=== PATIENT | male | born 1995 | race Caucasian/White ===

== ENCOUNTER 2017-10-02 00:14 | Emergency (ER) | payer OTHER ==
[~2017-10-02] VITALS: Ht 172.7 cm; Wt 66.2 kg
[~2017-10-02 00:14] MED LIST: CETI10TA10 PO
[2017-10-02 00:27] VITALS: TEMP 36.5; Ht 172.7 cm; Wt 66.2 kg
--- NOTE | 2017-10-02 00:40 | EMERGENCY ROOM VISIT NOTE ---
History Report prepared by Juan Ramon: Calvin White Under the Supervision of: Dr. Leny Haider D.O. First contact with patient: 00:14 Chief Complaint: ALCOHOL OVERDOSE Stated Complaint: ALCOHOL History of Present Illness HPI is limited due to altered mental status secondary to alcohol intoxication. The patient is a 22 year old male who presents to the Emergency Room via EMS with complaints of a recent alcohol overdose. EMS states the patient was at a friend's 23st birthday alliance party prior to arrival. EMS adds that the patient drank a fifth of vodka at the alliance party. They add that the patient's friends were unable to take care of him. EMS states the patient was unable to stand up unassisted. Source of History: EMS History Limited By: AMS Review of Systems ROS is limited due to altered mental status secondary to alcohol intoxication. Past Medical & Surgical Medical Problems: (1) Wrist laceration Family History History limited due to altered mental status secondary to alcohol intoxication. Social History Smoking Status: Never Smoker Alcohol Use: occasionally Drug Use: none Marital Status: single Housing Status: lives with roommate Occupation Status: [employer] student Current/Historical Medications No Active Prescriptions or Reported Meds Allergies Coded Allergies: NO KNOWN DRUG ALLERGIES (Verified Allergy, Unknown, none, 10/02/17) Physical Exam Vital Signs Date Time Temp Pulse Resp B/P (MAP) Pulse Ox O2 Delivery O2 Flow Rate FiO2 10/02/17 04:49 68 18 101/40 97 Room Air 10/02/17 03:41 67 18 97/48 100 Room Air 10/02/17 03:03 41 10/02/17 02:20 82 18 105/49 99 Room Air 10/02/17 01:16 71 18 90/49 96 Room Air 10/02/17 00:27 36.5 69 14 114/68 90 Room Air 10/02/17 00:20 64 Physical Exam HEENT: Head - normocephalic and atraumatic Pupils are 6mm, equal, round, and sluggishly reactive to light. Extraocular eye muscles are intact, and sclera are anicteric. Nose - moist nasal mucosa without discharge. Mouth - moist buccal mucosa. Oropharynx is nonerythematous and there is no tonsillar exudate or edema noted. Neck: Supple; no JVD, nuchal rigidity, cervical lymphadenopathy, or auscultated bruits. Heart: Regular rate and rhythm. There is a normal S1 and S2 with no murmurs, clicks, or gallops appreciated. Lungs: Clear to auscultation bilaterally with no wheezes, rales, or rhonchi. Abdomen: Soft, completely nontender, nondistended, with good bowel sounds. There are no palpable pulsatile masses or hepatosplenomegaly. There is no guarding, rigidity, or rebound noted. Extremities: No evidence of cyanosis, clubbing, or edema. There are easily palpable peripheral pulses. Skin: warm and dry with good turgor and no rashes. Medical Decision & Procedures Laboratory Results 10/02/17 00:24 Test 10/02/17 00:24 Anion Gap 9.0 mmol/L (3-11) Est Creatinine Clear Calc Drug Dose 137.9 ml/min Estimated GFR () 149.0 Estimated GFR (Non- 128.6 BUN/Creatinine Ratio 18.7 (10-20) Calcium Level 8.0 mg/dl (8.5-10.1) Ethyl Alcohol mg/dL 295.0 mg/dl (0-3) Laboratory results per my review. ED Course 0036: The patient was evaluated in room B4B. A complete history and physical examination were performed. Nursing notes and previous electronic medical records were reviewed. Labs were drawn as above. The patient was placed in the prone position to avoid aspiration. He was observing the regional marketing director and pulse oximeter. 0038: Patient was actively vomiting. 0122: Patient is asleep. He is hemodynamically stable. 0359: Patient is awake. He does not have much recollection of what happened. Patient's vitals are stable. He went back to sleep. 0603: Nurse notes that the patient fell while going to the restroom. She did not notice any injuries. She was able to lower him down. Medical Decision The patient is a 22 year old male who presents to the ED with a recent overdose. Differential diagnosis includes alcohol overdose, drug intoxication, hypoglycemia, and head injury. Lab results show alcohol = 295, potassium is low at 3.0, normal renal function, and glucose = 122. This is a 22-year-old male patient who presents to the emergency department after consuming too much alcohol. The patient was vomiting throughout his stay here in the emergency department. His vital signs remain stable. His potassium was slightly low. This will be replaced. The patient is going to sober up and then you be discharged home. Medication Reconcilliation Current Medication List: was personally reviewed by me Blood Pressure Screening Patient's blood pressure: Normal blood pressure Blood pressure disposition: Did not require urgent referral Impression Primary Impression: Alcohol overdose Additional Impression: Hypokalemia Scribe Attestation The scribe's documentation has been prepared under my direction and personally reviewed by me in its entirety. I confirm that the note above accurately reflects all work, treatment, procedures, and medical decision making performed by me. Departure Information Dispostion Home / Self-Care Prescriptions No Active Prescriptions or Reported Meds Referrals [facility] ([facility]) Forms HOME CARE DOCUMENTATION FORM, IMPORTANT VISIT INFORMATION Patient Instructions ED Overdose Alcohol, [facility]: [employer] Students and Alcohol Related Visits, My [facility] Additional Instructions Rest. Take plenty of clear liquids Avoid such excessive alcohol use in the future. Take tylenol or motrin for headache take foods high in potassium Problem Qualifiers Primary Impression: Alcohol overdose Encounter type: initial encounter Injury intent: accidental or unintentional Qualified Codes: T51.91XA - Toxic effect of unspecified alcohol , accidental (unintentional), initial encounter
[2017-10-02 00:58] LABS: CREATININE 0.8 mg/dl (0.60-1.40)
[2017-10-02] MEDS ORDERED: POTASSIUM CHLORIDE 20 MEQ TABCR PO STA (06:03)
[2017-10-02 08:38] VITALS: BP 99/54; PULSE 84; O2SAT 100
== END 2017-10-02 08:39 | disposition home or self-care (01) ==
LOC: C.EDB 00:14 → EDBD 00:14 → C.EDB 08:39
DX: F10.929 Alcohol use, unspecified with intoxication, unspecified (principal); E87.6 Hypokalemia; Y90.8 Blood alcohol level of 240 mg/100 ml or more